=== PATIENT | female | born 1960 | race Caucasian/White ===

== ENCOUNTER → 2019-06-07 | Outpatient (CLI) | payer MEDICAID ==
[2019-06-07 14:42] LABS: HEMOGLOBIN 13.7 G/DL (11.5-16.0); MEAN PLATELET VOLUME 9.3 FL (7.4-10.4); RED CELL DISTRIBUTION WIDTH 12.3 % (10.0-14.5); WHITE BLOOD COUNT 10.9 10^3/uL (4.3-11.0)
[2019-06-07 15:03] LABS: ALANINE AMINOTRANSFERASE 28 U/L (0-55); ALBUMIN 4.2 GM/DL (3.2-4.5); ALKALINE PHOSPHATASE 57 U/L (40-136); BILIRUBIN,TOTAL 0.4 MG/DL (0.1-1.0); BUN/CREATININE RATIO 21; CALCIUM 9.5 MG/DL (8.5-10.1); CARBON DIOXIDE 27 MMOL/L (21-32); CHLORIDE 105 MMOL/L (98-107); CREATININE SERUM 0.73 MG/DL (0.60-1.30); GFR ESTIMATED > 60; GLUCOSE 98 MG/DL (70-105); POTASSIUM 3.5 MMOL/L (3.6-5.0); SODIUM 141 MMOL/L (135-145); TOTAL PROTEIN 7.1 GM/DL (6.4-8.2)
== END ==
LOC: LAB 14:22
PROVIDERS: ATTEND Family Medicine
DX: M32.9 Systemic lupus erythematosus, unspecified (principal); E03.9 Hypothyroidism, unspecified
CPT/HCPCS: 36415; 80053; 84443; 85027

== ENCOUNTER → 2019-08-16 | Outpatient (CLI) | payer MEDICAID | LOC: LAB 08:05 | PROVIDERS: ATTEND Family Medicine | DX: M32.9 Systemic lupus erythematosus, unspecified (principal) | CPT/HCPCS: 36415; 85652; 86141; 86200 ==

== ENCOUNTER → 2019-08-17 | Outpatient (CLI) | payer MEDICAID ==
--- NOTE | 2019-08-17 17:20 | Diagnostic Imaging Report ---
INDICATION: Back pain. TIME OF EXAM: 4:19 p.m. FINDINGS: There is S-shaped thoracolumbar scoliotic curvature, convex to the right in the thoracic portion and convex to the left in the lumbar portion. There is normal thoracic kyphotic curvature. Vertebral body heights appear to be maintained. No acute compression fracture is detected. There is generalized degenerative disc disease with variable disc space narrowing and marginal spurring. Paraspinous alignment is intact. Patient does appear to have a large hiatal hernia. IMPRESSION: Thoracolumbar scoliosis and spondylosis. No acute fracture is detected. Dictated by: Dictated on workstation # [id number]
== END ==
LOC: RAD 15:53
PROVIDERS: ATTEND Family Medicine
DX: M47.814 Spondylosis without myelopathy or radiculopathy, thoracic region (principal); M41.85 Other forms of scoliosis, thoracolumbar region
CPT/HCPCS: 72072

== ENCOUNTER → 2019-10-13 | Outpatient (CLI) | payer MEDICAID ==
--- NOTE | 2019-10-13 08:56 | Diagnostic Imaging Report ---
PROCEDURE: MR imaging cervical spine without contrast. TECHNIQUE: Multiplanar, multisequence MR imaging of the cervical spine was performed without contrast. INDICATION: Chronic neck pain and bilateral arm weakness. No prior studies are available for comparison. There is reversal of the normal cervical lordotic curvature. Minimal anterolisthesis of C3 on C4 is noted with minimal retrolisthesis of C4 on C5, C5 on C6 and C6 on C7. The vertebral body marrow signal is unremarkable. No geographic marrow lesion is seen. There is severe degenerative disc disease from C3-4 through the C6/C7 levels, with complete loss of the disc space as well as desiccation and endplate osteophyte formation. The cervical cord demonstrates normal homogeneous signal intensity. No abnormal cord signal is seen. The craniocervical junction is unremarkable. C2-C3: Central canal and neural foramina are widely patent. C3-C4: Central canal is patent. There appears to be significant bilateral neural foraminal stenosis. C4-C5: Endplate osteophytes indent the ventral thecal sac producing mild narrowing of the canal. There is significant left and moderate right neural foraminal stenosis. C5-C6: Endplate osteophytes indent the ventral thecal sac. Central canal is patent. There is significant right neural foraminal stenosis. Left neural foramen is patent. C6-C7: Endplate osteophytes indent the ventral thecal sac and central canal is patent. There is moderate bilateral neural foraminal stenosis. C7-T1: No central canal or neural foraminal stenosis is identified. IMPRESSION: Severe cervical spondylosis with multilevel central canal and neural foraminal stenosis described level by level above. Dictated by: Dictated on workstation # [id number]
== END ==
LOC: RAD 07:46
PROVIDERS: ATTEND Pediatrics
DX: M47.812 Spondylosis without myelopathy or radiculopathy, cervical region (principal); M48.02 Spinal stenosis, cervical region
CPT/HCPCS: 72141

== ENCOUNTER 2019-11-17 12:30 | Outpatient (CLI) | payer MEDICAID ==
[~2019-11-17] VITALS: Ht 152.4 cm; Wt 53.6 kg
[2019-11-17] MEDS ORDERED: CETI10TA21 PO (12:58)
[2019-11-17] MEDS ORDERED: HYDR200T78 PO (12:58)
[2019-11-17] MEDS ORDERED: LEVO100T7 PO (12:58)
[2019-11-17] MEDS ORDERED: HYDR25TA4 PO (12:58)
[2019-11-17] MEDS ORDERED: ONDN4T PO (12:58)
[2019-11-17] MEDS ORDERED: PRED5TAB PO (12:58)
[2019-11-17] MEDS ORDERED: FLUO20TA28 PO (12:58)
[2019-11-17] MEDS ORDERED: HYDR-4226 PO (12:58)
[2019-11-17] MEDS ORDERED: ACET-2267 PO (12:58)
== END 2019-11-17 13:05 | disposition home or self-care (01) ==
LOC: PREOP 12:30
PROVIDERS: ATTEND Surgery
DX: Z01.818 Encounter for other preprocedural examination (principal)

== ENCOUNTER 2020-05-02 18:20 | Observation (INO) | payer MEDICAID ==
[~2020-05-02] VITALS: Ht 152.4 cm; Wt 54.5 kg
[~2020-05-02 18:20] MED LIST: ACET-2267 PO; CETI10TA21 PO; FLUO20TA28 PO; HYDR-4226 PO; HYDR200T78 PO; HYDR25TA4 PO; LEVO100T7 PO; ONDN4T PO; PRED5TAB PO
[2020-05-02] MEDS ORDERED: LACTATED RINGERS 1,000 ML IV ONE (18:27)
[2020-05-02] MEDS ORDERED: ACETAMINOPHEN 500 MG TAB (TYLENOL) ONE (18:53)
[2020-05-02] MEDS ORDERED: ACETAMINOPHEN 500 MG TAB (TYLENOL) PO ONE (19:00)
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
[2020-05-02 19:28] LABS: BASOPHILS % (AUTO) 0 % (0-10); EOSINOPHILS # (AUTO) 0.2 10^3/uL (0.0-0.3); EOSINOPHILS % (AUTO) 1 % (0-10); HEMATOCRIT 44 % (35-52); HEMOGLOBIN 15.1 G/DL (11.5-16.0); LYMPHOCYTES # (AUTO) 3.3 X 10^3 (1.0-4.0); LYMPHOCYTES % (AUTO) 22 % (12-44); MEAN CORPUSCULAR HEMOGLOBIN 32 PG (25-34); MEAN CORPUSCULAR HGB CONC 35 G/DL (32-36); MEAN CORPUSCULAR VOLUME 92 FL (80-99); MEAN PLATELET VOLUME 9.8 FL (7.4-10.4); MONOCYTES # (AUTO) 1.8 X 10^3 (0.0-1.0); MONOCYTES % (AUTO) 12 % (0-12); NEUTROPHILS # (AUTO) 9.6 X 10^3 (1.8-7.8); NEUTROPHILS % (AUTO) 64 % (42-75); PLATELET COUNT 345 10^3/uL (130-400); RED CELL DISTRIBUTION WIDTH 12.9 % (10.0-14.5)
--- NOTE | 2020-05-02 19:28 | Diagnostic Imaging Report ---
INDICATION: Dyspnea and fever FINDINGS: Portable upright view of the chest demonstrates a retrocardiac density probably a hiatal hernia. Heart size and vascularity are normal. There are no pleural effusions. IMPRESSION: There is a retrocardiac density consistent with a hiatal hernia. This is seen on the previous thoracic film from a year ago. No acute findings present. Dictated by: Dictated on workstation # [id number]
[2020-05-02 19:29] LABS: BILIRUBIN,URINE NEGATIVE (NEGATIVE); CLARITY,URINE CLEAR; COLOR,URINE YELLOW; GLUCOSE, URINE (UA) NEGATIVE (NEGATIVE); KETONES,URINE NEGATIVE (NEGATIVE); LEUKOCYTE ESTERASE ,URINE NEGATIVE (NEGATIVE); NITRITE,URINE NEGATIVE (NEGATIVE); PROTEIN,URINE 1+ (NEGATIVE)
[2020-05-02 19:46] LABS: INR 0.9 (0.8-1.4); PROTHROMBIN TIME PATIENT 12.6 SEC (12.2-14.7)
[2020-05-02 19:57] LABS: BACTERIA,URINE TRACE /HPF
[2020-05-02 20:06] LABS: EOSINOPHILS % (MANUAL) 2 %; LYMPHOCYTES % (MANUAL) 27 %; MONOCYTES % (MANUAL) 6 %; NEUTROPHILS % (MANUAL) 65 %; RBC MORPH NORMAL
[2020-05-02 20:07] LABS: ERYTHROCYTE SEDIMENTATION RATE 5 MM/HR (0-30)
[2020-05-02 20:14] LABS: ALANINE AMINOTRANSFERASE 21 U/L (0-55); ALBUMIN 4.4 GM/DL (3.2-4.5); ALKALINE PHOSPHATASE 59 U/L (40-136); BILIRUBIN,TOTAL 0.6 MG/DL (0.1-1.0); BUN/CREATININE RATIO 10; CARBON DIOXIDE 29 MMOL/L (21-32); CHLORIDE 99 MMOL/L (98-107); CREATININE SERUM 0.73 MG/DL (0.60-1.30); GFR ESTIMATED > 60; GLUCOSE 105 MG/DL (70-105); POTASSIUM 3.1 MMOL/L (3.6-5.0); SODIUM 138 MMOL/L (135-145); TOTAL PROTEIN 7.6 GM/DL (6.4-8.2)
--- OUTSIDE RECORDS SUMMARY | 2020-05-02 20:27 | XMS REPORT | Continuity of Care Document ---
Author Author The Mariama Gonzalez Organization [facility] Address Unknown Phone Unavailable Allergies Active Description Code Type Severity Reaction Onset Reported/Identified Relationship to Patient Clinical Status Yes gabapentin [id number] Drug Allerg y Unknown not effective 11/17/2019 Yes ibuprofen [id number] Drug Allergy Unknown N/A 11/17/2019 Yes meperidine [id number] Drug Allerg y Unknown N/A 11/22/2019 Medications There is no data. Problems Date Dx Coded Attending Type Code Diagnosis Diagnosed By 06/09/2019 NAINA WHEAT DO, Ot E03.9 HYPOTHYROIDISM, UNSPECIFIED 06/09/2019 NAINA WHEAT DO, Ot M32.9 SYSTEMIC LUPUS ERYTHEMATOSUS, UNSPECIFIE 08/18/2019 NAINA WHEAT DO, Ot M32.9 SYSTEMIC LUPUS ERYTHEMATOSUS, UNSPECIFIE 08/18/2019 NAINA WHEAT DO Ot M41.85 OTHER FORMS OF SCOLIOSIS, THORACOLUMBAR 08/18/2019 NAINA WHEAT DO, Ot M47.814 SPONDYLOSIS W/O MYELOPATHY OR RADICULOPA 09/01/2019 NAINA WHEAT DO, Ot M32.9 SYSTEMIC LUPUS ERYTHEMATOSUS, UNSPECIFIE 09/01/2019 NAINA WHEAT DO, Ot M41.85 OTHER FORMS OF SCOLIOSIS, THORACOLUMBAR 09/01/2019 NAINA WHEAT DO, Ot M47.814 SPONDYLOSIS W/O MYELOPATHY OR RADICULOPA 10/14/2019 OPAL EDWARDS, KELIN Wright Ot M47.812 SPONDYLOSIS W/O MYELOPATHY OR RADICULOPA 10/14/2019 OPAL EDWARDS, KELIN Wright Ot M48.02 SPINAL STENOSIS, CERVICAL REGION 10/18/2019 OPAL EDWARDS, KELIN Wright Ot M47.812 SPONDYLOSIS W/O MYELOPATHY OR RADICULOPA 10/18/2019 OPAL EDWARDS, KELIN Wright Ot M48.02 SPINAL STENOSIS, CERVICAL REGION 11/17/2019 DELMAN DO, DUC B Ot Z01.8 18 ENCOUNTER FOR OTHER PREPROCEDURAL EXAMIN [facility] Z01.8 18 ENCOUNTER FOR OTHER PREPROCEDURAL EXAMIN 11/17/2019 [facility], DUC B Ot Z01.8 18 ENCOUNTER FOR OTHER PREPROCEDURAL EXAMIN 11/17/2019 [facility], DUC B Ot Z01.8 18 ENCOUNTER FOR OTHER PREPROCEDURAL EXAMIN 11/18/[facility] Z01.8 18 ENCOUNTER FOR OTHER PREPROCEDURAL EXAMIN 11/22/2019 [facility], DUC B Ot I10 ESSENTIAL (PRIMARY) HYPERTENSION 11/22/2019 [facility], DUC B Ot K21.0 GASTRO-ESOPHAGEAL REFLUX DISEASE WITH ES 11/22/2019 [facility] DUC B Ot K29.7 0 GASTRITIS, UNSPECIFIED, WITHOUT BLEEDING 11/22/2019 [facility] DUC B Ot K31.7 POLYP OF STOMACH AND DUODENUM 11/22/2019 [facility] DUC B Ot K44.9 DIAPHRAGMATIC HERNIA WITHOUT OBSTRUCTION 11/22/2019 [facility], DUC B Ot K57.3 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 11/22/2019 [facility] DUC B Ot K64.8 OTHER HEMORRHOIDS 11/22/2019 [facility] DUC B Ot M06.9 RHEUMATOID ARTHRITIS, UNSPECIFIED 11/22/2019 [facility] DUC B Ot Z79.8 99 OTHER PRESSER AND SHAPER KNITTED GOODS (CURRENT) DRUG THERAPY 11/22/2019 [facility] DUC B Ot Z87.8 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 HISTORY OF NICOTINE DEPENDENCE 11/22/2019 [facility] DUC B Ot Z88.6 ALLERGY STATUS TO ANALGESIC AGENT STATUS 11/22/2019 [facility] DUC B Ot Z88.8 ALLERGY STATUS TO OTH DRUG/MEDS/BIOL SUB 11/22/2019 [facility] DUC B Ot Z90.7 10 ACQUIRED ABSENCE OF BOTH CERVIX AND UTER 11/23/2019 [facility] Z01.8 18 ENCOUNTER FOR OTHER PREPROCEDURAL EXAMIN 11/30/2019 [facility] Ot I10 ESSENTIAL (PRIMARY) HYPERTENSION 11/30/2019 [facility] DUC B Ot K21.0 GASTRO-ESOPHAGEAL REFLUX DISEASE WITH ES 11/30/2019 [facility], DUC B Ot K29.7 0 GASTRITIS, UNSPECIFIED, WITHOUT BLEEDING 11/30/2019 [facility], DUC B Ot K31.7 POLYP OF STOMACH AND DUODENUM 11/30/2019 [facility], DUC B Ot K44.9 DIAPHRAGMATIC HERNIA WITHOUT OBSTRUCTION 11/30/2019 [facility], DUC B Ot K57.3 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 11/30/2019 [facility], DUC B Ot K64.8 OTHER HEMORRHOIDS 11/30/2019 [facility], DUC B Ot M06.9 RHEUMATOID ARTHRITIS, UNSPECIFIED 11/30/2019 [facility] Ot Z79.8 99 OTHER PRESSER AND SHAPER KNITTED GOODS (CURRENT) DRUG THERAPY 11/30/2019 [facility], DUC B Ot Z87.8 91 PERSONAL HISTORY OF NICOTINE DEPENDENCE 11/30/2019 [facility], DUC B Ot Z88.6 ALLERGY STATUS TO ANALGESIC AGENT STATUS 11/30/2019 [facility], DUC B Ot Z88.8 ALLERGY STATUS TO OTH DRUG/MEDS/BIOL SUB 11/30/2019 [facility], DUC B Ot Z90.7 10 ACQUIRED ABSENCE OF BOTH CERVIX AND UTER Procedures There is no data. Results Test Result Range [facility] - 06/07/19 14:35 Blood leukocytes automated count (number/volume) 10.9 10*3/uL 4.3-11.0 Blood erythrocytes automated count (number/volume) 4.17 10*6/uL 4.35-5.85 Venous blood hemoglobin measurement (mass/volume) 13.7 g/dL 11.5-16.0 Blood hematocrit (volume fraction) 40 % 35-52 Automated erythrocyte mean corpuscular volume 96 [ foz_us] 80-99 Automated erythrocyte mean corpuscular h emoglobin (mass per erythrocyte) 33 pg 25-34 Automated erythrocyte mean corpuscular h emoglobin concentration measurement (mass/volume) 34 g/dL 32-36 Automated erythrocyte distribution width ratio 12. 3 % 10.0- 14.5 Automated blood platelet count (count/volume) 353 10*3/uL 130-400 Automated blood platelet mean volume measurement 9.3 [foz_us] 7.4-10.4 Comprehensive metabolic panel - 06/07/19 14:35 Serum or plasma sodium measurement (moles/volume) 141 mmol/L 135-145 Serum or plasma potassium measurement (moles/volume) 3.5 mmol/L 3.6-5.0 Serum or plasma chloride measurement (moles/volume) 105 mmol/L 98-107 Carbon dioxide 27 mmol/L 21-32 Serum or plasma anion gap determination (moles/volume) 9 mmol/L 5-14 Serum or plasma urea nitrogen measurement (mass/volume ) 15 mg/dL 7-18 Serum or plasma creatinine measurement (mass/volume) 0.73 mg/dL 0.60-1.30 Serum or plasma urea nitrogen/creatinine mass ratio 21 NRG Serum or plasma creatinine measurement w ith calculation of estimated glomerular filtration rate > NRG Serum or plasma glucose measurement (mass/volume) 98 mg/dL 70-105 Serum or plasma calcium measurement (mass/volume) 9.5 mg/dL 8.5-10.1 Serum or plasma total bilirubin measurement (mass/volu me) 0.4 mg/dL 0.1-1.0 Serum or plasma alkaline phosphatase jacob surement (enzymatic activity/volume) 57 U/L 40-136 Serum or plasma aspartate aminotransfera se measurement (enzymatic activity/volume) 27 U/L 5-34 Serum or plasma alanine aminotransferase measurement (enzymatic activity/volume) 28 U/L 0-55 Serum or plasma protein measurement (mass/volume) 7.1 g/dL 6.4-8.2 Serum or plasma albumin measurement (mass/volume) 4.2 g/dL 3.2-4.5 CALCIUM CORRECTED 9.3 mg/dL 8.5-10.1 THYROID STIMULATING HORMONE - 06/07/19 1 4:35 THYROID STIMULATING HORMONE 0.01 u[iU]/mL 0.35-4.94 Serum or plasma C reactive protein measu rement (mass/volume) - 08/16/19 08:14 Serum or plasma C reactive protein measurement (mass/v olume) 0.08 mg/dL 0.00-0.50 Serum cyclic citrullinated peptide antib ish assay (units/volume) - 08/16/19 08:14 Serum cyclic citrullinated peptide antibody assay (uni ts/volume) < % 0.0-19.9 PDM - ATS (PROFILE 8 WITH CONFIRMATION) - 09/01/19 00:00 Creatinine 222.3 mg/dL > or = 20.0 pH 6.9 4.5-9.0 Oxidant NEGATIVE mcg/mL <200 Amphetamines NEGATIVE ng/mL <500 medMATCH Amphetamines CONSISTENT NRG Benzodiazepines NEGATIVE ng/mL <100 medMATCH Benzodiazepines CONSISTENT NRG Marijuana Metabolite NEGATIVE ng/mL <20 medMATCH Marijuana Metab CONSISTENT NRG Cocaine Metabolite NEGATIVE ng/mL <150 medMATCH Cocaine Metab CONSISTENT NRG Opiates NEGATIVE ng/mL <100 medMATCH Opiates CONSISTENT NRG Oxycodone NEGATIVE ng/mL <100 medMATCH Oxycodone CONSISTENT NRG COMMENT NRG Buprenorphine NEGATIVE CONFIRMED ng/mL < 5 Buprenorphine NEGATIVE ng/mL <2 medMATCH Buprenorphine CONSISTENT NR G Norbuprenorphine NEGATIVE ng/mL <2 medMATCH Norbuprenorphine CONSISTENT NR G MDMA NEGATIVE ng/mL <500 medMATCH MDMA CONSISTENT NRG Alcohol Metabolites ng/mL <500 medMATCH Alcohol Metab NRG 6 Acetylmorphine NEGATIVE ng/mL <10 medMATCH 6 Acetylmorphine CONSISTENT NR G CULTURE, URINE - 09/14/19 00:00 CULTURE, URINE, ROUTINE SEE NOTE NRG CULTURE, URINE - 09/29/19 12:05 CULTURE, URINE, ROUTINE SEE NOTE NRG PDM - ATS (PROFILE 8 WITH CONFIRMATION) - 11/01/19 12:04 Prescribed Drug 1 Hydrocodone NRG Creatinine 125.6 mg/dL > or = 20.0 pH 6.9 4.5-9.0 Oxidant NEGATIVE mcg/mL <200 Amphetamines NEGATIVE ng/mL <500 medMATCH Amphetamines CONSISTENT NRG Benzodiazepines NEGATIVE ng/mL <100 medMATCH Benzodiazepines CONSISTENT NRG Marijuana Metabolite NEGATIVE ng/mL <20 medMATCH Marijuana Metab CONSISTENT NRG Cocaine Metabolite NEGATIVE ng/mL <150 medMATCH Cocaine Metab CONSISTENT NRG Opiates NEGATIVE ng/mL <100 medMATCH Opiates INCONSISTENT NRG Oxycodone NEGATIVE ng/mL <100 medMATCH Oxycodone CONSISTENT NRG COMMENT NRG Buprenorphine NEGATIVE ng/mL <5 MDMA NEGATIVE ng/mL <500 medMATCH MDMA CONSISTENT NRG Alcohol Metabolites NEGATIVE ng/mL <500 medMATCH Alcohol Metab CONSISTENT NRG 6 Acetylmorphine NEGATIVE ng/mL <10 medMATCH 6 Acetylmorphine CONSISTENT NR G medMATCH Buprenorphine CONSISTENT NRG CULTURE, STOOL - 12/08/19 14:38 SALMONELLA AND SHIGELLA, CULTURE NRG STOOL (HEMOCCULT) - 12/08/19 14:38 FECAL GLOBIN BY IMMUNOCHEMISTRY NRG STOOL (C-DIFF) - 12/08/19 19:00 CLOSTRIDIUM DIFFICILE TOXIN/GDH W/REFL TO PCR NRG Encounters ACCT No. Visit Date/Time Discharge Status Pt. Type Provider Facility Loc./Unit Complaint [id number] 03/29/2020 09:40:00 03/29/2020 23:59:5 9 CLS Outpatient [facility] [id number] 12/08/2019 14:40:00 Document Registration [id number] 11/01/2019 11:00:00 Document Registration [id number] 09/29/2019 11:00:00 Document Registration [id number] 09/14/2019 14:00:00 Document Registration [id number] 09/01/2019 14:20:00 Document Registration [id number] 11/22/2019 10:30:00 13:25:00 DIS Outpatient DUC MUNOZ DO [facility] ENDO CHANGE IN BM/DYSPHAGIA [id number] 11/17/2019 12:30:00 13:05:00 DIS Outpatient DUC MUNOZ DO [facility] PREOP COLONOSCOPY/EGD [id number] 10/13/2019 07:46:00 23:59:59 CLS Outpatient KELIN JOSEPH MD [facility] RAD CERVICALGIA [id number] 08/17/2019 15:53:00 23:59:59 CLS Outpatient NAINA WHEAT DO [facility] RAD PAIN IN T-SPINE [id number] 08/16/2019 08:05:00 23:59:59 CLS Outpatient NAINA WHEAT DO [facility] LAB LUPUS [id number] 06/07/2019 14:22:00 23:59:59 CLS Outpatient NAINA WHEAT DO [facility] LAB LUPUS
[2020-05-02] MEDS ORDERED: NS 100 ML (IVPB) BAG IV ONE (20:30)
[2020-05-02] MEDS ORDERED: IOHEXOL 350 MG/ML 100 ML (OMNIPAQUE 350) VIAL IV ONE (20:30)
[2020-05-02] MEDS ORDERED: HOLD METFORMIN - RECEIVED CONTRAST 20 ML VIAL IV SCH (20:30)
--- NOTE | 2020-05-02 21:14 | Diagnostic Imaging Report ---
PROCEDURE: CT head wo r/o stroke. TECHNIQUE: Multiple contiguous axial images were obtained through the brain without the use of intravenous contrast. Auto Exposure Controls were utilized during the CT exam to meet ALARA standards for radiation dose reduction. INDICATION: Neural deficit, neck discomfort. FINDINGS: Noncontrast CT scanning of the head demonstrates no mass effect, midline shift, hemorrhage or extra-axial fluid collections. The roberts-white matter differentiation is normal. No atrophic changes are present. No vascular calcifications are seen. The ventricles, cortical sulci and basilar cisterns appear normal. Bone windows appear normal. IMPRESSION: Normal CT scan of the head. Dictated by: Dictated on workstation # [id number]
--- NOTE | 2020-05-02 21:17 | Diagnostic Imaging Report ---
PROCEDURE: CT angiography of the chest with contrast. TECHNIQUE: Multiple contiguous axial images were obtained through the chest after uneventful bolus administration of intravenous contrast. 3D reconstructed CTA MIP acquisitions were also performed. Auto Exposure Controls were utilized during the CT exam to meet ALARA standards for radiation dose reduction. INDICATION: Fever cough neck discomfort FINDINGS: No pulmonary emboli aortic dissection or aneurysm is present. No vascular calcifications are present. No pleural or pericardial effusions are present. There is no abnormal adenopathy. Takeoff the great vessels appears normal. There is a moderate-sized hiatal hernia. Visualized portions of the abdomen appear normal. Scoliosis is present. No fractures are identified. IMPRESSION: 1. No pulmonary embolism is present. 2. There is moderate size hiatal hernia. Dictated by: Dictated on workstation # [id number]
--- NOTE | 2020-05-02 22:50 | NUR ---
Verbal consent obtained for lumbar puncture. Verbal consent witnessed by PATRICE Shaw et PATRICE Stevenson.
[2020-05-02] MEDS ORDERED: ONDANSETRON 4 MG/2 ML (SDV) Z0FRAN ONE (23:00)
[2020-05-02] MEDS ORDERED: fentaNYL INJECTION 100 MCG/2 ML AMP ONE (23:06)
[2020-05-03] MEDS ORDERED: cefTRIAXone 2 GM IV (ROCEPHIN) VIAL ONE (00:03)
[2020-05-03] MEDS ORDERED: D5 1/2 NS W/KCL 20 MEQ/L 1,000 ML IV ONE ×4 (00:39→20:37)
[2020-05-03] MEDS ORDERED: NS (IVPB) 250 ML ONE (01:35)
[2020-05-03] MEDS ORDERED: VANCOMYCIN 1000 MG/VIAL ONE (01:36)
[2020-05-03] MEDS ORDERED: ONDANSETRON 4 MG/2 ML (SDV) Z0FRAN ONE (03:30)
[2020-05-03] MEDS ORDERED: fentaNYL INJECTION 100 MCG/2 ML AMP ONE (03:30)
[2020-05-03] MEDS ORDERED: NS IV 1000 ML 1,000 ML ONE ×2 (07:58→09:29)
[2020-05-03] MEDS ORDERED: ENOXAPARIN 40 MG/0.4 ML (LOVENOX) SYR ONE (17:00)
[2020-05-03] MEDS ORDERED: CYCLOBENZAPRINE 10 MG (FLEXERIL) TAB ONE (20:24)
[2020-05-04] MEDS ORDERED: cefTRIAXone 1,000 MG IV (ROCEPHIN) VIAL ONE (00:19)
[2020-05-04 07:50] VITALS: BP 88/53
[2020-05-04] MEDS ORDERED: fentaNYL INJECTION 100 MCG/2 ML AMP IV PRN (08:30)
[2020-05-04] MEDS ORDERED: ONDANSETRON 4 MG/2 ML (SDV) Z0FRAN IV PRN (08:30)
[2020-05-04] MEDS ORDERED: predniSONE 5 MG TAB ONE (09:24)
[2020-05-04] MEDS ORDERED: LEVOTHYROXINE 100 MCG (LEVOTHROID) TAB ONE (09:24)
[2020-05-04] MEDS ORDERED: D5 1/2 NS W/KCL 20 MEQ/L 1,000 ML IV ONE ×2 (09:25→21:03)
[2020-05-04] MEDS ORDERED: ONDA-105 PO (09:38)
[2020-05-04] MEDS ORDERED: FLUO20CA46 PO (09:38)
[2020-05-04] MEDS ORDERED: CETI1TAB61 PO (09:38)
[2020-05-04] MEDS ORDERED: HYDR200T46 PO (09:38)
[2020-05-04] MEDS ORDERED: CYCL10TA9 PO (09:38)
[2020-05-04] MEDS ORDERED: OMEP20CA18 PO (09:38)
[2020-05-04] MEDS: NS IV 1000 ML 1,750 ML IV SCH ×2 (09:39→09:40)
[2020-05-04] MEDS ORDERED: BUPR1PAT TD (09:42)
[2020-05-04] MEDS ORDERED: BUPR1PAT9 TD ×2 (09:42)
--- NOTE | 2020-05-04 09:44 | NUR ---
SPOKE WITH THE PT AND CALLED SELINA AND YAMILKA TO COMPLETE THE MED REC 04-27-2020 ZYRTEC D #30/30DS 05-01-2020 BUTRANS PATCH 7.5 #01/10DS THE FOLLOWING MEDICATIONS AT [facility] SHOW PAST DUE FILL DATES HOWEVER THE DIRECTIONS HAVE CHANGED AND THEREFORE PT IS NOT PAST DUE HYDROXYCHLORIDE 200MG- DIRECTIONS ON THE EXT MED HISTORY SHOW 1 TAB TID HOWEVER THE PATIENTS GOLD BURNISHER TOLD HER TO DECREASE THE DOSE TO 1 TAB DAILY PREDNISONE 5MG- DIRECTIONS SHOW 1 TAB BID BUT THE PT IS ONLY TAKING 1 TAB DAILY OTC MEDS: TYLENOL
[2020-05-04 09:58] LABS: BASOPHILS % (AUTO) 0 % (0-10); EOSINOPHILS # (AUTO) 0.1 10^3/uL (0.0-0.3); EOSINOPHILS % (AUTO) 1 % (0-10); HEMATOCRIT 39 % (35-52); HEMOGLOBIN 13.3 G/DL (11.5-16.0); LYMPHOCYTES # (AUTO) 0.7 X 10^3 (1.0-4.0); LYMPHOCYTES % (AUTO) 6 % (12-44); MEAN CORPUSCULAR HEMOGLOBIN 33 PG (25-34); MEAN CORPUSCULAR HGB CONC 35 G/DL (32-36); MEAN CORPUSCULAR VOLUME 95 FL (80-99); MEAN PLATELET VOLUME 9.5 FL (7.4-10.4); MONOCYTES # (AUTO) 0.4 X 10^3 (0.0-1.0); MONOCYTES % (AUTO) 3 % (0-12); NEUTROPHILS # (AUTO) 11.4 X 10^3 (1.8-7.8); NEUTROPHILS % (AUTO) 90 % (42-75); PLATELET COUNT 299 10^3/uL (130-400); RED CELL DISTRIBUTION WIDTH 12.9 % (10.0-14.5); WHITE BLOOD COUNT 12.7 10^3/uL (4.3-11.0)
[2020-05-04 10:00] LABS: BAND NEUTROPHILS 6 %; BASOPHILS % (MANUAL) 0 %; EOSINOPHILS % (MANUAL) 0 %; LYMPHOCYTES % (MANUAL) 4 %; MONOCYTES % (MANUAL) 2 %; NEUTROPHILS % (MANUAL) 88 %; RBC MORPH NORMAL; TOXIC GRANULATION/VACUOLAZATIO 1+
[2020-05-04 10:03] LABS: CARBON DIOXIDE 23 MMOL/L (21-32); CHLORIDE 107 MMOL/L (98-107); POTASSIUM 3.3 MMOL/L (3.6-5.0); SODIUM 138 MMOL/L (135-145)
[2020-05-04 10:04] LABS: ALANINE AMINOTRANSFERASE 18 U/L (0-55); ALKALINE PHOSPHATASE 52 U/L (40-136); BILIRUBIN,TOTAL 0.4 MG/DL (0.1-1.0); BUN/CREATININE RATIO 13; CALCIUM 8.5 MG/DL (8.5-10.1); CREATININE SERUM 0.61 MG/DL (0.60-1.30); GFR ESTIMATED > 60; GLUCOSE 137 MG/DL (70-105); TOTAL PROTEIN 6.1 GM/DL (6.4-8.2)
[2020-05-04 10:05] LABS: ALBUMIN 3.4 GM/DL (3.2-4.5)
--- NOTE | 2020-05-04 11:01 | NUR ---
RECEIVED PAPER COPY OF PTS LABS STATING SHE IS NEGATIVE FOR COVID. SHE DOES CONTINUES DROPLET PRECAUTIONS D/T BEING TREATED FOR BACTERIAL MENINGITIS. DR MENDOZA GAVE VERBAL ORDER TO THIS RN THAT SHE CAN BE TAKEN OUT OF CONTACT AND COVID PRECAUTIONS. Addendum: 05/04/20 at 1102 by MARY ROBLES RN STERILE PROCESSING NOTIFIED BY THIS RN WELL.
--- NOTE | 2020-05-04 11:42 | NUR ---
PT REFUSED SYNTHROID THIS MORNING BC SHE SHOULD TAKE MED PRIOR TO BREAKFAST.
[2020-05-04 12:00] VITALS: BP 87/50
[2020-05-04] MEDS ORDERED: VANCOMYCIN 1 GM/NS 250 ML IVPB IV SCH ×2 (12:00)
--- NOTE | 2020-05-04 12:12 | Progress Note ---
Subjective Subjective/Events-last exam Afebrile, feeling better. Neck is improved, still having some pain but better. COVID negative. Focused Exam Lactate Level 05/02/20 18:53: Lactic Acid Level 1.13 05/03/20 07:15: Lactic Acid Level 1.61 Objective Exam Last Set of Vital Signs Vital Signs Date Time Temp Pulse Resp B/P (MAP) Pulse Ox O2 Delivery O2 Flow Rate FiO2 05/04/20 08:00 Room Air 05/04/20 07:50 36.0 73 18 88/53 (65) 95 Capillary Refill : Less Than 3 Seconds General: Alert, No Acute Distress HEENT: Other (mild scleral erythema in medial left eye) Lungs: Clear to Auscultation, Normal Air Movement Heart: Regular Rate, No Murmurs Extremities: No Edema Psych/Mental Status: Mental Status NL, Mood NL Assessment/Plan Assessment/Plan (1) Meningitis Status: Acute Assessment & Plan: Suspected bacterial meningitis based on presentation, unfortunately due to RA and spinal abnormalities unable to obtain LP. Treating empirically with ceftriaxone and vancomycin and dexamethasone. Plan to de- escalate when blood cultures negative x 48 hours. (2) Severe sepsis Assessment & Plan: Suspect secondary to meningitis, had low BP yesterday am, given 30 cc/kg bolus with improvement. LA normal. (3) Lupus Status: Chronic (4) Rheumatoid arthritis Status: Chronic (5) Person under investigation for COVID-19 Status: Resolved Assessment & Plan: Negative (6) DVT prophylaxis Status: Acute Assessment & Plan: Enoxaparin TAYA MENDOZA MD May 04, 2020 12:12
[2020-05-04] MEDS ORDERED: CYCLOBENZAPRINE 10 MG (FLEXERIL) TAB PO PRN (12:15)
[2020-05-04] MEDS ORDERED: SENNA W/DOCUSATE (SENOKOT S) TABLET ONE (12:31)
[2020-05-04] MEDS: SENNA W/DOCUSATE (SENOKOT S) TABLET PO SCH ×2 (12:34→21:09)
[2020-05-04] MEDS: LEVOTHYROXINE 100 MCG (LEVOTHROID) TAB PO SCH (12:35)
--- NOTE | 2020-05-04 12:35 | NUR ---
Patients COVID test is negative in [facility]
[2020-05-04] MEDS: PANTOPRAZOLE 20 MG TABLET (PROTONIX) PO SCH (12:55)
[2020-05-04] MEDS: FLUoxetine HCL 20 MG (PROzac) CAP PO SCH ×2 (12:55→21:09)
[2020-05-04] MEDS ORDERED: ACETAMINOPHEN 500 MG TAB (TYLENOL) PO PRN (13:30)
--- NOTE | 2020-05-04 14:39 | NUR ---
Pt sleeping. Fur Dyer did not disturb.
[2020-05-04 16:00] VITALS: BP 107/67
[2020-05-04 16:34] LABS: POTASSIUM 3.9 MMOL/L (3.6-5.0)
[2020-05-04 16:35] LABS: BUN/CREATININE RATIO 16; CALCIUM 8.3 MG/DL (8.5-10.1); CARBON DIOXIDE 22 MMOL/L (21-32); CHLORIDE 110 MMOL/L (98-107); CREATININE SERUM 0.55 MG/DL (0.60-1.30); GFR ESTIMATED > 60; GLUCOSE 135 MG/DL (70-105); SODIUM 139 MMOL/L (135-145)
[2020-05-04 16:36] LABS: EOSINOPHILS % (AUTO) 0 % (0-10); HEMATOCRIT 37 % (35-52); HEMOGLOBIN 12.8 G/DL (11.5-16.0); LYMPHOCYTES % (AUTO) 8 % (12-44); MEAN CORPUSCULAR HEMOGLOBIN 32 PG (25-34); MEAN CORPUSCULAR HGB CONC 34 G/DL (32-36); MEAN CORPUSCULAR VOLUME 94 FL (80-99); MONOCYTES % (AUTO) 7 % (0-12); NEUTROPHILS % (AUTO) 86 % (42-75); PLATELET COUNT 295 10^3/uL (130-400); RED CELL DISTRIBUTION WIDTH 12.9 % (10.0-14.5); WHITE BLOOD COUNT 15.9 10^3/uL (4.3-11.0)
[2020-05-04 16:37] LABS: BASOPHILS % (AUTO) 0 % (0-10); LYMPHOCYTES # (AUTO) 1.2 X 10^3 (1.0-4.0); MONOCYTES # (AUTO) 1.1 X 10^3 (0.0-1.0); NEUTROPHILS # (AUTO) 13.7 X 10^3 (1.8-7.8)
[2020-05-04] MEDS ORDERED: PSEUDOEPHEDRINE HCL 30 MG (SUDAFED) TAB PO SCH (17:00)
--- NOTE | 2020-05-04 17:30 | NUR ---
PT HAD SUDAFED 60 MG QID SCHEDULED TO REPLACE ZYRTEC D. PT REPORTED SHE DID NOT WANT TO TAKE MEDICATION SO LATE IN THE DAY. DR MENDOZA SAID IT WAS OK TO D/C.
[2020-05-04] MEDS ORDERED: ENOXAPARIN 40 MG/0.4 ML (LOVENOX) SYR SC SCH (18:00)
[2020-05-04 20:00] VITALS: BP 113/71
[2020-05-04] MEDS: D5 1/2 NS W/KCL 20 MEQ/L 1,000 ML IV SCH (21:10)
[2020-05-04] MEDS: cefTRIAXone 1,000 MG/SWFI 10 ML IV PUSH IV SCH ×2 (21:10)
[2020-05-05] VITALS: BP 138/83
[2020-05-05 04:00] VITALS: BP 114/75
[2020-05-05] MEDS: D5 1/2 NS W/KCL 20 MEQ/L 1,000 ML IV SCH (04:04)
[2020-05-05] MEDS: LEVOTHYROXINE 100 MCG (LEVOTHROID) TAB PO SCH (06:28)
[2020-05-05 06:59] LABS: BASOPHILS % (AUTO) 0 % (0-10); EOSINOPHILS % (AUTO) 0 % (0-10); HEMATOCRIT 35 % (35-52); HEMOGLOBIN 11.8 G/DL (11.5-16.0); LYMPHOCYTES # (AUTO) 1.6 X 10^3 (1.0-4.0); LYMPHOCYTES % (AUTO) 9 % (12-44); MEAN CORPUSCULAR HEMOGLOBIN 32 PG (25-34); MEAN CORPUSCULAR HGB CONC 34 G/DL (32-36); MEAN CORPUSCULAR VOLUME 94 FL (80-99); MEAN PLATELET VOLUME 10.3 FL (7.4-10.4); MONOCYTES # (AUTO) 1.1 X 10^3 (0.0-1.0); MONOCYTES % (AUTO) 6 % (0-12); NEUTROPHILS # (AUTO) 14.9 X 10^3 (1.8-7.8); NEUTROPHILS % (AUTO) 85 % (42-75); PLATELET COUNT 302 10^3/uL (130-400); RED CELL DISTRIBUTION WIDTH 13.1 % (10.0-14.5); WHITE BLOOD COUNT 17.6 10^3/uL (4.3-11.0)
[2020-05-05] MEDS ORDERED: predniSONE 5 MG TAB PO SCH (07:00)
[2020-05-05 07:22] LABS: ALANINE AMINOTRANSFERASE 16 U/L (0-55); ALKALINE PHOSPHATASE 50 U/L (40-136); BILIRUBIN,TOTAL 0.2 MG/DL (0.1-1.0); BUN/CREATININE RATIO 19; CALCIUM 8.5 MG/DL (8.5-10.1); CARBON DIOXIDE 23 MMOL/L (21-32); CHLORIDE 110 MMOL/L (98-107); CREATININE SERUM 0.58 MG/DL (0.60-1.30); GFR ESTIMATED > 60; GLUCOSE 123 MG/DL (70-105); POTASSIUM 4.1 MMOL/L (3.6-5.0); SODIUM 138 MMOL/L (135-145); TOTAL PROTEIN 5.4 GM/DL (6.4-8.2)
[2020-05-05 08:00] VITALS: BP 123/71
[2020-05-05] MEDS ORDERED: HYDROCHLOROTHIAZIDE 25 MG (HCTZ) TAB PO SCH (09:00)
[2020-05-05] MEDS ORDERED: LORATADINE (CLARITIN) 10 MG TAB PO SCH (09:00)
[2020-05-05] MEDS ORDERED: HYDROXYCHLOROQUINE 200 MG (PLAQUENIL) TAB PO SCH (09:00)
[2020-05-05 09:01] VITALS: BP 123/71
[2020-05-05] MEDS: FLUoxetine HCL 20 MG (PROzac) CAP PO SCH (09:32)
[2020-05-05] MEDS: SENNA W/DOCUSATE (SENOKOT S) TABLET PO SCH (09:32)
[2020-05-05] MEDS: PANTOPRAZOLE 20 MG TABLET (PROTONIX) PO SCH (09:32)
--- NOTE | 2020-05-05 11:24 | NUR ---
Pt is [employer] and declines sacraments.
[2020-05-05] MEDS ORDERED: ERYT1OIN6 OP (12:12)
[2020-05-05] MEDS ORDERED: CEFT2VIA12 IV (12:12)
--- NOTE | 2020-05-05 12:17 | Discharge Summary ---
Discharge Summary Hospital Course Problems/Diagnosis: (1) Meningitis Status: Acute Assessment & Plan: Suspected bacterial meningitis based on presentation, unfortunately due to RA and spinal abnormalities unable to obtain LP. Treating empirically with ceftriaxone and vancomycin and dexamethasone. Plan to de- escalate when blood cultures negative x 48 hours. 05/05 blood cultures negative at 48 hours, patient afebrile and doing well, decided to continue ceftriaxone outpatient for 7 days to complete course for possible pneumococcal meningitis. (2) Severe sepsis Status: Resolved Resolution Date/Time: 05/04/20 @ 12:14 Assessment & Plan: Suspect secondary to meningitis, had low BP yesterday am, given 30 cc/kg bolus with improvement. LA normal. (3) Lupus Status: Chronic (4) Rheumatoid arthritis Status: Chronic (5) Person under investigation for COVID-19 Status: Resolved Resolution Date/Time: 05/04/20 @ 12:12 Assessment & Plan: Negative (6) Conjunctivitis Status: Acute Assessment & Plan: Consider viral with possible viral meningitis, however, given one eye and continuing to be bothersome, will treat with topical antibiot ic. She is already working on eye appointment because of blurriness in that eye which has predated this illness. Qualifiers: Qualified Codes: H10.022 - Other mucopurulent conjunctivitis, left eye Hospital Course Date of Admission: May 02, 2020 at 23:15 Admission Diagnosis : Family Physician/Provider: Kelin Marinelli MD Date of Discharge: 05/05/20 Discharge Diagnosis: See problem list Hospital Course: See problem list Labs and Pending Lab Test: Laboratory Tests 05/05/20 06:28: White Blood Count 17.6H, Red Blood Count 3.70L, Hemoglobin 11.8, Hematocrit 35, Mean Corpuscular Volume 94, Mean Corpuscular Hemoglobin 32, Mean Corpuscular Hemoglobin Concent 34, Red Cell Distribution Width 13.1, Platelet Count 302, Me an Platelet Volume 10.3, Neutrophils (%) (Auto) 85H, Lymphocytes (%) (Auto) 9L, Monocytes (%) (Auto) 6, Eosinophils (%) (Auto) 0, Basophils (%) (Auto) 0, Neutrophils # (Auto) 14.9H, Lymphocytes # (Auto) 1.6, Monocytes # (Auto) 1.1H, Eosinophils # (Auto) 0.0, Basophils # (Auto) 0.0, Sodium Level 138, Potassium Level 4.1, Chloride Level 110H, Carbon Dioxide Level 23, Anion Gap 5, Blood Urea Nitrogen 11, Creatinine 0.58L, Estimat Glomerular Filtration Rate > 60, BUN/Creatinine Ratio 19, Glucose Level 123H, Calcium Level 8.5, Corrected Calcium 9.3, Total Bilirubin 0.2, Aspartate Amino Transf (AST/SGOT) 16, Alanine Aminotransferase (ALT/SGPT) 16, Alkaline Phosphatase 50, Total Protein 5.4L, Albumin 3.0L Microbiology 05/02/20 Blood Culture - Preliminary, Resulted No growth 05/02/20 Throat Culture - Final, Complete No Beta Strep isolated Home Meds Active Ceftriaxone (Ceftriaxone Sodium) 2 Gm/Vial Soln 2 Gm IV DAILY 7 Days Erythromycin Opthalmic Ointment (Erythromycin Base) 1 Gm Oint...g. 0 OP Q6H 5 Days / inch Reported Butrans (Buprenorphine) 1 Each Patch.tdwk 7.5 Mcg TD FRIDAY APPLIES A NEW PATCH EVERY FRIDAY Zyrtec-D Tablet (Cetirizine HCl/Pseudoephedrine) 1 Each Tab.er.12h 1 Each PO DAILY Omeprazole 20 Mg Capsule.dr 20 Mg PO DAILY Cyclobenzaprine HCl 10 Mg Tablet 10 Mg PO HS PRN Ondansetron HCl 4 Mg Tablet 4 Mg PO Q6H PRN Hydroxychloroquine Sulfate 200 Mg Tablet 200 Mg PO DAILY Fluoxetine HCl 20 Mg Capsule 40 Mg PO BID TAKES 2 (20MG) CAPS Tylenol Extra Strength (Acetaminophen) 500 Mg Tablet 1,000 Mg PO BID PRN Hydrochlorothiazide 25 Mg Tablet 25 Mg PO DAILY Levothyroxine Sodium 100 Mcg Tablet 100 Mcg PO DAILY Prednisone 5 Mg Tablet 5 Mg PO DAILY Assessment/Pt DC Instructions Follow up with Dr. Marinelli on 05/10 at 9 am. Discharge Diet: Regular Diet Activity as Tolerated: Yes Discharge Physical Examination Allergies: Coded Allergies: ibuprofen (Verified Allergy, Unknown, 11/17/19) meperidine (Verified Allergy, Unknown, 11/22/19) gabapentin (Verified Adverse Reaction, Unknown, not effective, 11/17/19) General Appearance: No Apparent Distress, WD/WN HEENT: Other (mild medial erythema of left conjunctiva, EOMI) Respiratory: Lungs Clear, Normal Breath Sounds Cardiovascular: Regular Rate, Rhythm, No Murmur Skin: Normal Color, Warm/Dry Neurologic/Psychiatric: Alert, Normal Mood/Affect Copy Copies To 1: KELIN MARINELLI MD, BETHANY N MD May 05, 2020 12:17
[2020-05-05 12:30] VITALS: BP 131/86
[2020-05-05 15:51] VITALS: BP 125/73
[2020-05-05] MEDS: cefTRIAXone 1,000 MG/SWFI 10 ML IV PUSH IV SCH ×2 (15:56)
== END 2020-05-05 16:48 | disposition home or self-care (01) ==
LOC: EDUNIT# 18:20 → ER 18:21 → 4TH 23:15
PROVIDERS: ADMIT Family Medicine; ATTEND Family Medicine
DX: A41.9 Sepsis, unspecified organism (principal); G03.9 Meningitis, unspecified; Z20.828 Contact with and (suspected) exposure to other viral communicable diseases; H10.9 Unspecified conjunctivitis; M06.9 Rheumatoid arthritis, unspecified; M32.9 Systemic lupus erythematosus, unspecified; I10 Essential (primary) hypertension; M54.2 Cervicalgia; M54.9 Dorsalgia, unspecified; M41.9 Scoliosis, unspecified; E03.9 Hypothyroidism, unspecified; R13.10 Dysphagia, unspecified; F41.9 Anxiety disorder, unspecified; F32.9 Major depressive disorder, single episode, unspecified; Z87.891 Personal history of nicotine dependence; Z90.710 Acquired absence of both cervix and uterus; Z90.722 Acquired absence of ovaries, bilateral
CPT/HCPCS: 36410; 70450; 71045; 71275; 76937; 80048; 80053 ×3; 81000; 83605 ×2; 83615; 83735; 83880; 84145; 85007 ×2; 85025 ×2; 85027 ×2; 85610; 85652; 85730; 86141; 86308; 87040; 87430; 93005; 93041; 99284; G0378; U0002; 36415; 87635

== ENCOUNTER 2020-05-12 09:07 | Outpatient (RCR) | payer MEDICAID ==
[2020-05-06] MEDS: cefTRIAXone 2,000 MG/SWFI 20 ML IV PUSH IV SCH ×2 (09:28)
[2020-05-06 09:40] VITALS: BP 0/0
[2020-05-07 09:00] VITALS: BP 118/85
[2020-05-07] MEDS: cefTRIAXone 2,000 MG/SWFI 20 ML IV PUSH IV SCH ×2 (09:24)
[2020-05-08] MEDS: cefTRIAXone 2,000 MG/SWFI 20 ML IV PUSH IV SCH ×2 (09:14)
[2020-05-08 09:15] VITALS: BP 105/86
[2020-05-09] MEDS: cefTRIAXone 2,000 MG/SWFI 20 ML IV PUSH IV SCH ×2 (09:08)
[2020-05-09 09:12] VITALS: BP 118/89
[2020-05-10] MEDS: cefTRIAXone 2,000 MG/SWFI 20 ML IV PUSH IV SCH ×2 (09:30)
[2020-05-10 10:30] VITALS: BP 120/85
[2020-05-11 08:55] VITALS: BP 115/79
[2020-05-11] MEDS: cefTRIAXone 2,000 MG/SWFI 20 ML IV PUSH IV SCH ×2 (09:07)
[~2020-05-12] VITALS: Ht 152.4 cm
[~2020-05-12 09:07] MED LIST changes: +BUPR1PAT TD; +BUPR1PAT9 TD; +CEFT2VIA12 IV; -CETI10TA21 PO; +CETI10TA49 PO; +CETI1TAB61 PO; +CYCL10TA9 PO; +ERYT1OIN6 OP; +FLUO20CA46 PO; +HYDR200T46 PO; +OMEP20CA18 PO; +ONDA-105 PO; +WATER (STERILE) FOR INJECTION 20 ML ONE; +cefTRIAXone 2 GM/20 ML for IV (ROCEPHIN) ONE
[2020-05-12 09:23] VITALS: BP 115/89
[2020-05-12] MEDS: cefTRIAXone 2,000 MG/SWFI 20 ML IV PUSH IV SCH ×2 (09:23)
[2020-05-12 09:34] LABS: BASOPHILS # (AUTO) 0.1 10^3/uL (0.0-0.1); BASOPHILS % (AUTO) 1 % (0-10); EOSINOPHILS # (AUTO) 0.2 10^3/uL (0.0-0.3); EOSINOPHILS % (AUTO) 2 % (0-10); HEMATOCRIT 42 % (35-52); HEMOGLOBIN 14.6 G/DL (11.5-16.0); LYMPHOCYTES # (AUTO) 2.5 X 10^3 (1.0-4.0); LYMPHOCYTES % (AUTO) 26 % (12-44); MEAN CORPUSCULAR HEMOGLOBIN 32 PG (25-34); MEAN CORPUSCULAR HGB CONC 35 G/DL (32-36); MEAN CORPUSCULAR VOLUME 92 FL (80-99); MEAN PLATELET VOLUME 9.5 FL (7.4-10.4); MONOCYTES % (AUTO) 10 % (0-12); NEUTROPHILS # (AUTO) 5.8 X 10^3 (1.8-7.8); NEUTROPHILS % (AUTO) 60 % (42-75); PLATELET COUNT 364 10^3/uL (130-400); WHITE BLOOD COUNT 9.6 10^3/uL (4.3-11.0)
[2020-05-12 09:52] LABS: BAND NEUTROPHILS 4 %; BASOPHILS % (MANUAL) 0 %; EOSINOPHILS % (MANUAL) 6 %; LYMPHOCYTES % (MANUAL) 28 %; METAMYELOCYTES % 4 %; MONOCYTES % (MANUAL) 3 %; NEUTROPHILS % (MANUAL) 55 %; RBC MORPH NORMAL
== END 2020-08-04 | disposition home or self-care (01) ==
LOC: SDC 09:07
PROVIDERS: ATTEND Family Medicine
DX: Z51.81 Encounter for therapeutic drug level monitoring (principal)
CPT/HCPCS: 36415; 85007; 85027; 96374

== ENCOUNTER 2020-06-29 13:05 | Outpatient (RCR) | payer MEDICAID ==
[~2020-06-29 13:05] MED LIST changes: -WATER (STERILE) FOR INJECTION 20 ML ONE; -cefTRIAXone 2 GM/20 ML for IV (ROCEPHIN) ONE
== END 2020-07-13 13:35 | disposition home or self-care (01) ==
PROVIDERS: ATTEND Orthopaedic Surgery Orthopaedic Surgery of the Spine
DX: M48.02 Spinal stenosis, cervical region (principal); M50.30 Other cervical disc degeneration, unspecified cervical region; G95.9 Disease of spinal cord, unspecified; M43.16 Spondylolisthesis, lumbar region; M41.50 Other secondary scoliosis, site unspecified; M48.061 Spinal stenosis, lumbar region without neurogenic claudication; M51.36 Other intervertebral disc degeneration, lumbar region

== ENCOUNTER 2020-10-19 09:51 | Outpatient (RCR) | payer MEDICAID | END 2020-10-19 12:00 | disposition home or self-care (01) | PROVIDERS: ATTEND Pediatrics | DX: M79.641 Pain in right hand (principal); R29.898 Other symptoms and signs involving the musculoskeletal system ==

== ENCOUNTER → 2020-11-10 | Outpatient (CLI) | payer MEDICAID ==
--- NOTE | 2020-11-10 15:45 | Diagnostic Imaging Report ---
EXAMINATION: Magnetic resonance imaging of the right wrist without contrast DATE: November 10, 2020. COMPARISON: None. HISTORY: 60-year-old female, right wrist pain. TECHNIQUE: Magnetic Resonance Imaging sequences were performed of the wrist without contrast. FINDINGS: TRIANGULAR FIBROCARTILAGE COMPLEX: There is no discretely identified tear of the triangular fibrocartilage complex. INTRINSIC LIGAMENTS: There is abnormal widening of the scapholunate interval and a complete tear of the scapholunate ligament. There is no obvious tear of the lunotriquetral ligament. JOINTS: There is severe radiocarpal joint space loss. There is mild triscaphe and first carpometacarpal arthritis. There is a moderate to large distal radial ulnar joint effusion. CARPAL TUNNEL: The flexor retinaculum is unremarkable. The flexor digitorum superficialis and profundus are intact. The median nerve is unremarkable. FLEXOR TENDONS: There is a small amount of fluid in the flexor carpi radialis tendon sheath compatible with tenosynovitis. The additional flexor tendons are intact. EXTENSOR TENDONS: Radial side extensor tendons are intact including: extensor pollicis longus, extensor carpi radialis brevis, extensor carpi radialis longus, extensor pollicis brevis and abductor pollicis longus. The extensor carpi ulnaris, extensor digitorum, extensor digiti minimi and extensor indicis tendons are intact. BONE: There is abnormal widening of the scapholunate interval as mentioned above. The lunate is dorsally tilted. There is proximal migration of the capitate. There is prominent abnormal low signal in the scaphoid likely relating to avascular necrosis. There is a nondisplaced fracture of the proximal scaphoid, best seen on coronal PD sequence image 8. There is fairly prominent edema-like signal throughout the capitate. There is additional edema-like signal in the hamate, trapezoid, trapezium and distal scaphoid. There is no additional identified fracture. BURSAE AND SOFT TISSUES: The bursae and soft tissues surrounding the wrist are within normal limits. IMPRESSION: 1. Abnormal widening of the scapholunate interval with complete tear of the scapholunate ligament. There is proximal migration of the capitate and abnormal dorsal tilt of the lunate. These findings can be seen with traumatic tears of the scapholunate ligament and also can be seen with rheumatoid arthritis or calcium pyrophosphate dihydrate deposition disease. 2. 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 3. Tenosynovitis of flexor carpi radialis. No discretely identified tendon tear. 4. Moderate to large distal radioulnar joint effusion. Advanced radiocarpal arthritis, mild triscaphe arthritis and mild osteoarthritis of the first carpometacarpal joint. Dictated by: Dictated on workstation # [id number]
== END ==
LOC: RAD 14:00
PROVIDERS: ATTEND Pediatrics
DX: S62.034A Nondisplaced fracture of proximal third of navicular [scaphoid] bone of right wrist, initial encounter for closed fracture (principal); X58.XXXA Exposure to other specified factors, initial encounter; M19.031 Primary osteoarthritis, right wrist; M18.9 Osteoarthritis of first carpometacarpal joint, unspecified; M87.9 Osteonecrosis, unspecified; M25.431 Effusion, right wrist
CPT/HCPCS: 73221

== ENCOUNTER → 2021-01-01 | Outpatient (CLI) | payer MEDICAID ==
--- NOTE | 2021-01-04 14:11 | Diagnostic Imaging Report ---
INDICATION: Routine screening. COMPARISON: 05/22/2018 and 11/07/2016. TECHNIQUE: 2D and 3D bilateral screening mammography was performed with CAD. FINDINGS: Scattered fibroglandular densities are identified bilaterally. The parenchymal pattern is stable. No mass or malignant appearing microcalcifications are seen. The axillae are unremarkable. There are benign calcifications in both breasts. IMPRESSION: No mammographic features suspicious for malignancy are identified. ACR BI-RADS Category 2: Benign findings. Result letter will be mailed to the patient. Note: At least 10% of breast cancer is not imaged by mammography. Dictated by: Dictated on workstation # [id number]
== END ==
LOC: RAD 09:45
PROVIDERS: ATTEND Pediatrics
DX: Z12.31 Encounter for screening mammogram for malignant neoplasm of breast (principal)
CPT/HCPCS: 77063; 77067

== ENCOUNTER 2021-03-01 08:38 | Outpatient (RCR) | payer MEDICAID | END 2021-04-10 12:19 | disposition home or self-care (01) | PROVIDERS: ATTEND Orthopaedic Surgery | DX: Z96.631 Presence of right artificial wrist joint (principal); Z98.1 Arthrodesis status ==

== ENCOUNTER 2022-01-20 13:35 | Emergency (ER) | payer MEDICARE, MEDICAID ==
[~2022-01-20] VITALS: Ht 152 cm; Wt 52.0 kg
[~2022-01-20 13:35] MED LIST changes: +CYCL10TA25 PO; -CYCL10TA9 PO; -FLUO20CA46 PO; +FLUO20CA48 PO
--- NOTE | 2022-01-20 13:57 | ED Integumentary General ---
General Chief Complaint: Allergic Reaction Stated Complaint: RASH ALL OVER HANDS/ANKLES SWELLING Source: patient Exam Limitations: no limitations (ISAAC BADILLO) History of Present Illness Date Seen by Provider: January 20, 2022 Time Seen by Provider: 13:56 Initial Comments Patient is a 61-year-old female presents ED with rash. Rash started on her left leg around 1:00 this morning. Started having itching on the left side. Noted this red itchy rash. Woke up around 7 had rash bilateral lower extremities with itching. She took Benadryl without much improvement. Rash is staying in to the lower extremities. Denies any change in soaps, detergents, medication. Denies of any shortness of breath. Did feel nauseous with some left side abdominal pain but that improved. History of lupus and RA and has been treated in the [facility]. She believes she is on a steroid at this time. Has been on Plaquenil in the past but was taken off medication. Not currently on methotrexate. Patient denies fever, chills, headache, dizziness, sore throat, fever, neck pain. No recent URI. (ISAAC BADILLO) Allergies and Home Medications Allergies Coded Allergies: ibuprofen (Verified Allergy, Unknown, 11/17/19) meperidine (Verified Allergy, Unknown, 11/22/19) gabapentin (Verified Adverse Reaction, Unknown, not effective, 11/17/19) Patient Home Medication List Home Medication List Reviewed: Yes (ISAAC BADILLO) Acetaminophen (Tylenol Extra Strength) 500 Mg Tablet, 1,000 MG PO BID PRN for PAIN-MODERATE (5-7), (Reported) Entered as Reported by: JERMAINE NAGEL on 11/17/19 1258 Buprenorphine (Butrans) 1 Each Patch.tdwk, 7.5 MCG TD FRIDAY, (Reported) Entered as Reported by: UCHE BRUMFIELD on 05/04/20 0942 Ceftriaxone Sodium (Ceftriaxone) 2 Gm/Vial Soln, 2 GM IV DAILY Prescribed by: TAYA MENDOZA on 05/05/20 1212 Cephalexin (Cephalexin) 500 Mg Tablet, 500 MG PO QID Prescribed by: ALBARO NICOLE on 01/20/22 1519 Cetirizine HCl/Pseudoephedrine (Zyrtec-D Tablet) 1 Each Tab.er.12h, 1 EACH PO DAILY, (Reported) Entered as Reported by: UCHE BRUMFIELD on 05/04/20937 Cyclobenzaprine HCl (Cyclobenzaprine HCl) 10 Mg Tablet, 10 MG PO HS PRN for MUSCLE SPASMS, (Reported) Entered as Reported by: UCHE BRUMFIELD on 05/04/20937 Diphenhydramine HCl (Benadryl) 25 Mg Capsule, 25 MG PO Q6H Prescribed by: ALBARO NICOLE on 01/20/22 9293 Erythromycin Base (Erythromycin Opthalmic Ointment) 1 Gm Oint...g., 0 OP Q6H Prescribed by: TAYA MENDOZA on 05/05/20 1212 Fluoxetine HCl (Fluoxetine HCl) 20 Mg Capsule, 40 MG PO BID, (Reported) Entered as Reported by: UCHE BRUMFIELD on 05/04/20937 Hydrochlorothiazide (Hydrochlorothiazide) 25 Mg Tablet, 25 MG PO DAILY, (Reported) Entered as Reported by: JERMAINE NAGEL on 11/17/191257 Hydroxychloroquine Sulfate (Hydroxychloroquine Sulfate) 200 Mg Tablet, 200 MG PO DAILY, (Reported) Entered as Reported by: UCHE BRUMFIELD on 05/04/20937 Levothyroxine Sodium (Levothyroxine Sodium) 100 Mcg Tablet, 100 MCG PO DAILY, (Reported) Entered as Reported by: JERMAINE NAGEL on 11/17/191257 Omeprazole (Omeprazole) 20 Mg Capsule.dr, 20 MG PO DAILY, (Reported) Entered as Reported by: UCHE BRUMFIELD on 05/04/20937 Ondansetron HCl (Ondansetron HCl) 4 Mg Tablet, 4 MG PO Q6H PRN for NAUSEA/VOMITING-1ST LINE, (Reported) Entered as Reported by: UCHE BRUMFIELD on 05/04/20937 Prednisone (Prednisone) 5 Mg Tablet, 5 MG PO DAILY, (Reported) Entered as Reported by: JERMAINE NAGEL on 11/17/19 125 Prednisone (Prednisone) 10 Mg Tab.ds.pk, 10 MG PO DAILY Prescribed by: ALBARO NICOLE on 01/20/22 1505 Review of Systems Review of Systems Constitutional: No chills, No diaphoresis, No malaise, No weakness EENTM: No hearing loss, No ear pain, No blurred vision, No double vision Respiratory: No cough, No dyspnea on exertion Cardiovascular: No chest pain, No edema, No Hx of Intervention Gastrointestinal: abdominal pain; No diarrhea; nausea; No vomiting Genitourinary: No decreased output, No discharge Musculoskeletal: No back pain, No gout Skin: change in color, pruritus, rash Psychiatric/Neurological: Denies Anxiety, Denies Depressed (ISAAC BADILLO) All Other Systems Reviewed Negative Unless Noted: Yes (ISAAC BADILLO) Past Iqygnqk-Dsaein-Bfgzcx Hx Seasonal Allergies Seasonal Allergies: Yes (ISAAC BADILLO) Past Medical History Surgeries: Yes (LUMBAR SURGERY X 2; HYST/LATER BSO;EGD/COLONOSCOPY 11/2019) Hysterectomy, Oophorectomy, Orthopedic Respiratory: No Cardiac: Yes Hypertension Neurological: Yes (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) 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: Yes [employer] History: Hysterectomy, Menopausal Genitourinary: No Gastrointestinal: Yes (dysphagia) Musculoskeletal: Yes (CHRONIC NECK AND BACK PAIN ; LUMBAR SURGERY X 2) Rheumatoid Arthritis, Scoliosis, Chronic Back Pain Endocrine: Yes Hypothyroidsim, Lupus HEENT: Yes Dysphagia Cancer: No Psychosocial: Yes Anxiety, Depression Integumentary: No Blood Disorders: No (ISAAC BADILLO) Physical Exam Vital Signs Vital Signs - First Documented 01/20/22 13:44 Temp 37.2 Pulse 102 Resp 20 B/P (MAP) 113/79 (90) Pulse Ox 96 O2 Delivery Room Air (KIAH,MAREN K DO) Vital Signs Capillary Refill : (ISAAC BADILLO) General Appearance: WD/WN, no apparent distress HEENT: PERRL/EOMI, normal ENT inspection, TMs normal, pharynx normal Neck: non-tender, full range of motion, supple, normal inspection Cardiovascular: regular rate, rhythm, no edema, no gallop, no JVD Respiratory: chest non-tender, lungs clear, normal breath sounds Gastrointestinal: normal bowel sounds, non tender, soft Back: normal inspection, no CVA tenderness, no vertebral tenderness Extremities: swelling (Bilateral ankles swelling) Skin: other (Erythematous edematous papular macular rash lower extremities. Macular papular erythematous rash nonblanchable. No vesicles or pustules. No sloughing the skin) (ISAAC BADILLO) Progress/Results/Core Measures Results/Orders Lab Results Laboratory Tests Test 01/20/22 13:55 01/20/22 14:20 Range/Units White Blood Count 16.5 H 4.3-11.0 10^3/uL Red Blood Count 4.56 3.80-5.11 10^6/uL Hemoglobin 14.8 11.5-16.0 g/dL Hematocrit 43 35-52 % Mean Corpuscular Volume 94 80-99 fL Mean Corpuscular Hemoglobin 33 25-34 pg Mean Corpuscular Hemoglobin Concent 35 32-36 g/dL Red Cell Distribution Width 13.0 10.0-14.5 % Platelet Count 343 130-400 10^3/uL Mean Platelet Volume 9.1 9.0-12.2 fL Immature Granulocyte % (Auto) 1 % Neutrophils (%) (Auto) 86 H 42-75 % Lymphocytes (%) (Auto) 7 L 12-44 % Monocytes (%) (Auto) 5 0-12 % Eosinophils (%) (Auto) 1 0-10 % Basophils (%) (Auto) 0 0-10 % Neutrophils # (Auto) 14.2 H 1.8-7.8 10^3/uL Lymphocytes # (Auto) 1.2 1.0-4.0 10^3/uL Monocytes # (Auto) 0.8 0.0-1.0 10^3/uL Eosinophils # (Auto) 0.2 0.0-0.3 10^3/uL Basophils # (Auto) 0.1 0.0-0.1 10^3/uL Immature Granulocyte # (Auto) 0.1 0.0-0.1 10^3/uL Neutrophils % (Manual) 86 % Lymphocytes % (Manual) 7 % Monocytes % (Manual) 5 % Band Neutrophils 2 % Blood Morphology Comment NORMAL Erythrocyte Sedimentation Rate 5 0-30 MM/HR Prothrombin Time 12.2 12.2-14.7 SEC INR Comment 0.9 0.8-1.4 Activated Partial Thromboplast Time 27 24-35 SEC Sodium Level 135 135-145 MMOL/L Potassium Level 3.7 3.6-5.0 MMOL/L Chloride Level 99 98-107 MMOL/L Carbon Dioxide Level 23 21-32 MMOL/L Anion Gap 13 5-14 MMOL/L Blood Urea Nitrogen 22 H 7-18 MG/DL Creatinine 0.93 0.60-1.30 MG/DL Estimat Glomerular Filtration Rate 70 BUN/Creatinine Ratio 24 Glucose Level 115 H 70-105 MG/DL Calcium Level 9.2 8.5-10.1 MG/DL Corrected Calcium 9.0 8.5-10.1 MG/DL Total Bilirubin 0.8 0.1-1.0 MG/DL Aspartate Amino Transf (AST/SGOT) 27 5-34 U/L Alanine Aminotransferase (ALT/SGPT) 18 0-55 U/L Alkaline Phosphatase 48 40-136 U/L C-Reactive Protein High Sensitivity 1.82 H 0.00-0.50 MG/DL Total Protein 7.0 6.4-8.2 GM/DL Albumin 4.3 3.2-4.5 GM/DL Urine Color YELLOW Urine Clarity CLEAR Urine pH 7.0 5-9 Urine Specific [place] 1.010 L 1.016-1.022 Urine Protein NEGATIVE NEGATIVE Urine Glucose (UA) NEGATIVE NEGATIVE Urine Ketones NEGATIVE NEGATIVE Urine Nitrite NEGATIVE NEGATIVE Urine Bilirubin NEGATIVE NEGATIVE Urine Urobilinogen 0.2 < = 1.0 MG/DL Urine Leukocyte Esterase NEGATIVE NEGATIVE Urine RBC (Auto) 1+ H NEGATIVE Urine RBC 2-5 H /HPF Urine WBC 0-2 /HPF Urine Crystals NONE /LPF Urine Bacteria TRACE /HPF Urine Casts NONE /LPF Urine Mucus NEGATIVE /LPF Urine Culture Indicated NO (MAREN DUPONT DO) Vital Signs/I&O 01/20/22 01/20/22 13:44 15:29 Temp 37.2 37.2 Pulse 102 95 Resp 20 20 B/P (MAP) 113/79 (90) 113/79 Pulse Ox 96 96 O2 Delivery Room Air Room Air (MAREN DUPONT DO) Departure Communication (PCP) Patient presents ED with a lower extremity rash. Started around 1:00 this mo rning. She has associated itching. No recent change in soaps laundry detergents, medication. History of RA and lupus. She denies any difficulty breathing. No change in urination. Had some abdominal discomfort today around the left lateral abdomen but that improved. No fever, chest pain, shortness of breath or cough. Patient has several lesions to the lower extremity some are more blanchable and edematous concerning for gives. She does have some lesions concerning for more purpura. She has no headache, dizziness, recent URI. She has no meningeal signs. No oral lesions. No sloughing of the skin. No change in medication or recent antibiotic use. Patient with normal kidney function. Elevated white blood count of 16. Normal coags. Normal platelets. Concerning for vasculitis versus lupus rash versus allergic reaction. Some mild erythema to the cheeks without exudate. She does take a low-dose 5 mg prednisone daily. Not currently on any immunosuppressant medication. Patient was given Solu-Medro l ,Benadryl, and Pepcid here. No significant improvement. Her kidney function was normal. Did have some small amount of hematuria in the urine but did show similar type results but improved from 2019 when she was seen here. Does not appear to be in kidney failure at this time with normal kidney function. Discussed taper steroids, Benadryl. Discussed with patient that this rash should improve. Patient would be more susceptible to infections. If few areas in the lower ankles with some swelling concerning for early cellulitis. Will discharge with Keflex. She does not appear toxic septic. She is wanting to go home. She scheduled follow-up with marriage and family counselor tomorrow. Recommend checking with them for follow up. May need further lab work and biopsy. If any worsening symptoms return back to ED for further evaluation. (ISAAC BADILLO) Impression Primary Impression: Rash Disposition: HOME, SELF-CARE Condition: Stable Departure-Patient Inst. Decision time for Depature: 15:01 (ISAAC BADILLO) Referrals: KELIN MARINELLI MD (PCP/Family) Primary Care Physician Patient Instructions: Skin Rash Scripts Cephalexin (Cephalexin) 500 Mg Tablet 500 MG PO QID for 7 Days, #28 TAB Prov: ISAAC BADILLO 01/20/22 Diphenhydramine HCl (Benadryl) 25 Mg Capsule 25 MG PO Q6H, #20 CAP Prov: ISAAC BADILLO 01/20/22 Prednisone (Prednisone) 10 Mg Tab.ds.pk 10 MG PO DAILY, #36 EA Take 40 mg daily x4 days, take 30 mg x4 days, take 20 mg x 4 days Prov: ISAAC BADILLO 01/20/22 ATTENDING PHYSICIAN NOTE: I WAS PHYSICALLY PRESENT ER PHYSICIAN, BUT I WAS NOT INVOLVED IN ANY DECISION MAKING OR ANY CARE OF THIS PATIENT. (MAREN DUPONT DO) ISAAC BADILLO January 20, 2022 13:57 MAREN DUPONT DO January 23, 2022 06:07
[2022-01-20] MEDS ORDERED: FAMOTIDINE 20MG/2ML IV (PEPCID) IVP ONE (14:00)
[2022-01-20] MEDS ORDERED: diphenhydrAMINE 50 MG/ML INJ (BENADRYL) IVP ONE (14:00)
[2022-01-20] MEDS ORDERED: methylPREDNISolone 40 MG/ML (Solu-MEDROL) VIAL IV ONE (14:00)
[2022-01-20 14:07] LABS: BASOPHILS # (AUTO) 0.1 10^3/uL (0.0-0.1); BASOPHILS % (AUTO) 0 % (0-10); EOSINOPHILS # (AUTO) 0.2 10^3/uL (0.0-0.3); EOSINOPHILS % (AUTO) 1 % (0-10); HEMATOCRIT 43 % (35-52); HEMOGLOBIN 14.8 g/dL (11.5-16.0); LYMPHOCYTES # (AUTO) 1.2 10^3/uL (1.0-4.0); LYMPHOCYTES % (AUTO) 7 % (12-44); MEAN CORPUSCULAR HEMOGLOBIN 33 pg (25-34); MEAN CORPUSCULAR HGB CONC 35 g/dL (32-36); MEAN CORPUSCULAR VOLUME 94 fL (80-99); MEAN PLATELET VOLUME 9.1 fL (9.0-12.2); MONOCYTES # (AUTO) 0.8 10^3/uL (0.0-1.0); MONOCYTES % (AUTO) 5 % (0-12); NEUTROPHILS # (AUTO) 14.2 10^3/uL (1.8-7.8); NEUTROPHILS % (AUTO) 86 % (42-75); PLATELET COUNT 343 10^3/uL (130-400); WHITE BLOOD COUNT 16.5 10^3/uL (4.3-11.0)
[2022-01-20 14:15] LABS: ALBUMIN 4.3 GM/DL (3.2-4.5); POTASSIUM 3.7 MMOL/L (3.6-5.0)
[2022-01-20 14:16] LABS: CALCIUM 9.2 MG/DL (8.5-10.1)
[2022-01-20 14:17] LABS: INR 0.9 (0.8-1.4); PROTHROMBIN TIME PATIENT 12.2 SEC (12.2-14.7)
[2022-01-20 14:19] LABS: BILIRUBIN,TOTAL 0.8 MG/DL (0.1-1.0)
[2022-01-20 14:21] LABS: CREATININE SERUM 0.93 MG/DL (0.60-1.30)
[2022-01-20 14:31] LABS: BILIRUBIN,URINE NEGATIVE (NEGATIVE); CLARITY,URINE CLEAR; COLOR,URINE YELLOW; GLUCOSE, URINE (UA) NEGATIVE (NEGATIVE); KETONES,URINE NEGATIVE (NEGATIVE); LEUKOCYTE ESTERASE ,URINE NEGATIVE (NEGATIVE); NITRITE,URINE NEGATIVE (NEGATIVE); PROTEIN,URINE NEGATIVE (NEGATIVE)
[2022-01-20 14:34] LABS: BAND NEUTROPHILS 2 %; ERYTHROCYTE SEDIMENTATION RATE 5 MM/HR (0-30); LYMPHOCYTES % (MANUAL) 7 %; MONOCYTES % (MANUAL) 5 %; NEUTROPHILS % (MANUAL) 86 %; RBC MORPH NORMAL
[2022-01-20 14:40] LABS: BACTERIA,URINE TRACE /HPF; WBC,URINE 0-2 /HPF
[2022-01-20] MEDS ORDERED: hydrOXYzine (VISTARIL/ATARAX) 25 MG capsule/tablet PO ONE (15:00)
[2022-01-20] MEDS ORDERED: PRED10TA22 PO (15:05)
[2022-01-20] MEDS ORDERED: DIPH25CA79 PO (15:05)
[2022-01-20] MEDS ORDERED: CEPH500T PO (15:19)
[2022-01-20 15:29] VITALS: BP 113/79
== END 2022-01-20 15:28 | disposition home or self-care (01) ==
LOC: EDUNIT# 13:35 → ER 13:39
DX: R21 Rash and other nonspecific skin eruption (principal); M32.9 Systemic lupus erythematosus, unspecified; M06.9 Rheumatoid arthritis, unspecified; Z79.899 Other long term (current) drug therapy
CPT/HCPCS: 36415; 80053; 81000; 85007; 85027; 85610; 85652; 85730; 86141

== ENCOUNTER 2022-09-17 06:36 | Outpatient (CLI) | payer MEDICARE, MEDICAID ==
[~2022-09-17] VITALS: Ht 149.9 cm; Wt 52.0 kg
[~2022-09-17 06:36] MED LIST changes: +CEPH500T PO; +DIPH25CA79 PO; +PRED10TA22 PO
[2022-09-18] MEDS ORDERED: CHOL200025 PO (11:48)
[2022-09-18] MEDS ORDERED: FOLI0.8T4 PO (11:48)
[2022-09-18] MEDS ORDERED: METH2.5T PO (11:48)
== END 2022-09-18 12:02 | disposition home or self-care (01) ==
LOC: PREOP 06:36
PROVIDERS: ATTEND Surgery
DX: Z01.818 Encounter for other preprocedural examination (principal)

== ENCOUNTER 2022-09-23 11:28 | Day surgery (SDC) | payer MEDICARE, MEDICAID ==
[~2022-09-23] VITALS: Ht 152.4 cm; Wt 52.0 kg
[~2022-09-23 11:28] MED LIST changes: +CHOL200025 PO; +FOLI0.8T4 PO; +METH2.5T PO
--- NOTE | 2022-09-23 11:39 | Progress Note-Pre Operative ---
Pre-Operative Progress Note Date of Available H&P: Sep 10, 2022 Date H&P Reviewed: Sep 23, 2022 Time H&P Reviewed: 11:37 History & Physical: H&P Reviewed, Patient Examed, No changes noted Pre-Operative Diagnosis: Dysphagia DUC MUNOZ DO Sep 23, 2022 11:39
[2022-09-23] MEDS ORDERED: HURRICAINE EXT TUBE (BENZOCAINE) ONE (11:47)
[2022-09-23] MEDS ORDERED: LACTATED RINGERS 1,000 ML IV ONE (11:47)
[2022-09-23 11:55] VITALS: BP 116/81
[2022-09-23] MEDS ORDERED: LACTATED RINGERS 1,000 ML IV STA (11:56)
[2022-09-23] MEDS ORDERED: proPOfol 200 MG/20 ML (DIPRIVAN) VIAL IV ONE (12:00)
[2022-09-23] MEDS ORDERED: HURRICAINE EXT TUBE (BENZOCAINE) XX PRN (12:00)
--- NOTE | 2022-09-23 12:14 | Progress Note-Post Operative ---
Post-Operative Progess Note Surgeon (s)/Ultrasonic Solderer (s) Surgeon DUC MUNOZ DO Ultrasonic Solderer: none Pre-Operative Diagnosis Dysphagia Post-Operative Diagnosis same plus Hiatal hernia ??stricture at GE jxn Procedure & Operative Findings Date of Procedure 09/23/22 Procedure Performed/Findings EGD with bx PROCEDURE NOTE: After informed consent was obtained, the patient was brought to the endoscopy suite, placed in bed in left lateral decubitus position. She was administered IV sedation by the PROP SAWYER who then monitored vitals the entire time, heart rate, blood pressure and pulse ox and the scope was inserted down the mouth through the esophagus into the stomach. On the way down, noted some mild esophagitis, and possibly small stricture. Pushed into the stomach, pushed past the antrum into the duodenum. Duodenum looked good. Pulled back and did a biopsy of theantrum, then retroflexed the scope, saw hiatal hernia, took a picture of this and then pulled the scope into the GE junction, took another picture of the hiatal hernia and then did a biopsy of the GE junction. Pushed the scope back into the stomach, suctioned all the air out of the stomach. At this point pulled the scope up the esophagus and out the mouth. The patient tolerated the procedure, and she recovered in endoscopy suite. Anesthesia Type IV sedation by PROP SAWYER Estimated Blood Loss Estimated blood loss (mL): scant Specimens/Packing Specimens Removed antral bx GE jxn bx DUC MUNOZ DO Sep 23, 2022 12:14
[2022-09-23 12:15] VITALS: BP 101/68
--- NOTE | 2022-09-23 12:15 | Endoscopy Discharge Instruct ---
Endo Procedure/Findings Findings 1.: Gastritis 2.: Hiatal Hernia 3.: Stricture Discharge Instructions - Activity: You might feel a little sleepy until tomorrow. This is due to the medicine you received to relax you. Until tomorrow, you should: NOT drive a car, operate machinery or power tools. NOT drink any alcoholic beverages. NOT make any important decisions or sign importortant papers. Do not return to work until tomorrow, unless otherwise instructed. Resume previous activities tomorrow. Diet: Start by taking liquids. If you tolerate liquids, advance to solid food. 1.: EGD in 1 year Notify Physician - If you experience excessive bleeding, unusual abdominal pain, fever, or chest pain, contact your doctor immediately. DUC MUNOZ DO Sep 23, 2022 12:15
[2022-09-23 12:30] VITALS: BP 105/72
--- NOTE | 2022-09-23 12:31 | Anesthesia-General Post-Op ---
MAC Patient Condition Mental Status/LOC: Same as Preop Cardiovascular: Satisfactory Nausea/Vomiting: Absent Respiratory: Satisfactory Pain: Controlled Complications: Absent Post Op Complications Complications None Follow Up Care/Instructions Patient Instructions None needed. Anesthesiology Discharge Order Discharge Order Patient is doing well, no complaints, stable vital signs, no apparent adverse anesthesia problems. No complications reported per nursing. JADEN HARMAN CRNA Sep 23, 2022 12:31
[2022-09-23 12:37] VITALS: BP 105/72
== END 2022-09-23 12:37 | disposition home or self-care (01) ==
LOC: ENDO 11:28
PROVIDERS: ATTEND Surgery
DX: K21.00 Gastro-esophageal reflux disease with esophagitis, without bleeding (principal); K44.9 Diaphragmatic hernia without obstruction or gangrene; K29.70 Gastritis, unspecified, without bleeding; F17.200 Nicotine dependence, unspecified, uncomplicated; Z79.899 Other long term (current) drug therapy